=== PATIENT | female | born 1985 | race Caucasian/White ===

== ENCOUNTER → 2024-02-06 16:04 | Outpatient (BNVA) | payer BC, SELFPAY | PROVIDERS: Visit Provider Obstetrics & Gynecology | DX: Z12.4 Encounter for screening for malignant neoplasm of cervix (principal) | CPT/HCPCS: 87624 ==

== ENCOUNTER → 2024-02-26 07:54 | Outpatient (BNVA) | payer BC, MEDICAID, SELFPAY | PROVIDERS: Visit Provider Obstetrics & Gynecology | DX: N83.291 Other ovarian cyst, right side (principal) | CPT/HCPCS: 76830 ==

== ENCOUNTER 2024-06-06 05:51 | Day surgery (SDC) | payer BC, MEDICAID, SELFPAY ==
[2024-06-06] VITALS (11 sets, daily range): BP systolic 116–151; BP diastolic 76–97; PULSE 65–99; RESP 12–23; TEMP 36.2–37.1; O2SAT 94–100; BMI 34.3
--- NOTE | 2024-06-06 01:30 | W.PM.OPSFHP ---
Same Day Surgery H&P Indication for Procedure/HPI DATE OF PROCEDURE: June 06, 2024 CHIEF COMPLAINT/INDICATIONFOR SURGICAL PROCEDURE: abnormal uterine bleeding PREOP DIAGNOSIS: abnormal uterine bleeding PLANNED PROCEDURE: Operation Date: 06/06/24 07:00 Proposed Procedures p Hysteroscopy w/ Endometrial Sampling 26256, N93.9(Not Applicable) - Jim Posadas MD s Poylpectomy(Not Applicable) - Jim Posadas MD 38 y.o. h/o BTL with 6-month history of heavy and prolonged periods Medications/Allergies* Home Medications ?Medication ?Instructions ?Recorded ?Confirmed ?Type No Known Home Medications 02/06/24 06/05/24 History Allergies/Adverse Reactions Allergy/AdvReac Type Severity Reaction Status Date / Time No Known Allergies Allergy Verified 06/05/24 09:06 Pertinent History/Comorbid Conditions* Family History (Updated 02/06/24 @ 15:12 by Chanelle Meyers) Denies family history of Colon cancer Ovarian cancer Prostate cancer Diabetes Heart disease Hyperlipidemia Breast cancer Hypertension Uterine cancer Thyroid disease Stroke Social History Smoking and tobacco/nicotine status: never used tobacco/nicotine Pertinent Exam Findings alert, oriented x 3, clear to auscultation bilaterally and regular rate & rhythm Pertinent Data Pap 02-06-24 NILM, negative HPV Pelvic sono 02-26-24 normal uterus and endometrium Right ov with clear cyst 5 cm Normal left ov Recommendations Surgery/Procedure today Coding Level of Care Code Acute Code for Chg Fwd Time Spent (min) 20
[2024-06-06 06:17] LABS: OR HCG Qualitative Urine Negative (Negative)
[2024-06-06] MEDS: sodium chloride 0.9% 1,000 ML 30 ML IV (06:21)
--- NOTE | 2024-06-06 06:49 | W.PM.OPSUD ---
Surgery/Procedure H&P Update DATE OF PROCEDURE: June 06, 2024 DATE H&P PERFORMED: 06/06/24 CHANGES TO PREVIOUS DOCUMENTATION: patient wants endometrial ablation with Novasure device in addition to hysteroscopy, endometrial sampling / polypectomy PREOP DIAGNOSIS: abnormal uterine bleeding PLANNED PROCEDURE: Operation Date: 06/06/24 07:00 Proposed Procedures p Hysteroscopy w/ Endometrial Sampling 71888, N93.9(Not Applicable) - Jim Posadas MD s Poylpectomy(Not Applicable) - Jim Posadas MD
--- NOTE | 2024-06-06 07:06 | ANES.PREANE2 ---
Pre-Anesthetic Assessment Height/Weight: Height 1.63 m Weight 90.718 kg Temp Pulse Resp BP Pulse Ox O2 Del Method 97.8 F 77 17 144/83 99 Room Air 06/06/24 06:09 06/06/24 06:09 06/06/24 06:09 06/06/24 06:09 06/06/24 06:09 06/06/24 06:11 Preop Diagnosis: abnormal uterine bleeding Operation Date: 06/06/24 07:00 Proposed Procedures p Hysteroscopy w/ Endometrial Sampling 30139, N93.9(Not Applicable) - Jim Posadas MD s Poylpectomy(Not Applicable) - Jim Posadas MD Familial anesthetic complications: None Was Beta Suresh taken within 24 hours: N/A Was Clonidine taken within 24 hours: N/A Last intake: Intake Last Liquid Date 06/05/24 Last Liquid Time 21:00 Last Solid Date 06/05/24 Last Solid Time 19:30 Social No alcohol and No tobacco Exam alert, oriented x 3, clear to auscultation bilaterally and regular rate & rhythm Airway Mallampati: Class III Dentition: full Anesthetic Plan ASA status: 1 Anesthesia: General Risk of > 500 ml blood loss (7ml/kg in children): No Medications/Allergies Home Medications ?Medication ?Instructions ?Recorded ?Confirmed ?Last Taken ?Type No Known Home Medications 02/06/24 06/05/24 Unknown History Allergies Allergy/AdvReac Type Severity Reaction Status Date / Time No Known Allergies Allergy Verified 06/05/24 09:06 Current Medications Generic Name Dose Route Start Last Admin Trade Name Freq PRN Reason Stop Dose Admin Sodium Chloride 1,000 mls @ 30 mls/hr 06/06/24 06:15 06/06/24 06:21 Sodium Chloride 0.9% IV 06/07/24 06:14 30 mls/hr .Q24H PHOEBE Administration PFSH Anesthesia Family History Denies family history of Colon cancer Ovarian cancer Prostate cancer Diabetes Heart disease Hyperlipidemia Breast cancer Hypertension Uterine cancer Thyroid disease Stroke Social History Smoking and tobacco/nicotine status: never used tobacco/nicotine Female Reproductive History Date of last menstrual period: 05/22/24 Data Anesthesia Cardiac Studies: No Data to Display
[2024-06-06] MEDS: fentaNYL 50 mcg/mL INJ 2mL IVP (08:05)
--- NOTE | 2024-06-06 08:50 | ANE.PACU2 ---
Inpatient post-anesthesia follow up: Airway intact: Yes Vital signs: Temperature 98.7 F Pulse Rate 76 Respiratory Rate 17 Blood Pressure 134/82 Pulse Oximetry 97 Oxygen Delivery Me thod Room Air Oxygen Flow Rate 6 Fraction of Inspir ed Oxygen Hydration adequate: Yes Nausea and vomiting: No Pain level: 1 Mental status: Baseline
--- NOTE | 2024-06-06 09:05 | PM.OP ---
Operative Report Date of procedure: June 06, 2024 Pre-op diagnosis: menometrorrhagia Post-op diagnosis: same Post-op findings: Normal endometrial cavity No endometrial polyps or fibroids Minimal endometrial tissue Global endometrial ablation and intact uterine cavity following procedure Procedure done: hysteroscopy curettage of uterus endometrial ablation with Novasure device Implants: none Specimens removed/disposition: endometrial curettings Surgeon: Jim Posadas MD Anesthesia: MAC Estimated blood loss (mL): 5 Complications: none Findings: Normal endometrial cavity No endometrial polyps or fibroids Minimal endometrial tissue Global endometrial ablation and intact uterine cavity following procedure Brief History: 38 y.o. with menometrorrhagia Procedure: Informed consent was obtained. The patient was taken to the OR and placed on the table. General endotracheal anesthesia was induced. The patient was then placed in dorsolithotomy position. The perineum were then prepped and draped in the usual fashion. A speculum was placed in the vagina. The anterior lip of the cervix was grasped with a sharp-toothed tenaculum. The uterus was sounded to 8 cm. The cervix was serially dilated with Hegar dilators. . A hysteroscope was placed into the endometrial cavity. The endometrial cavity was seen to be normal. There were no polyps or fibroids. There was minimal endometrial tissue. The hysteroscope was then removed. Endometrial curettage was done with a sharp curette. Endometrial tissue was sent to pathology. The Novasure device was then primed and inserted into the endometrial cavity. The cervical occlusion sleeve was advanced. Cavity integrity test was done. The device was activated for 60 seconds. The Novasure device was then removed. Repeat hysteroscopy showed an intact endometrial cavity with adequate global endometrial ablation. All instruments were then removed. The sharp-toothed tenaculum was removed. There was no bleeding from the endometrial cavity or cervix. The patient was then placed supine and awakened and taken to the PACU. Postop condition: stable EBL: 5 cc Sponge and instruments counts were normal x 2 Complications: none
== END 2024-06-06 08:56 | disposition home or self-care (01) ==
PROVIDERS: Visit Provider Obstetrics & Gynecology
PROC: 0UJD8ZZ Inspection of Uterus and Cervix, Via Natural or Artificial Opening Endoscopic (ICD-10-PCS; CPT 58555; principal; 2024-06-06 07:00)
PROC: (CPT 58999; 2024-06-06 07:00)
DX: N92.0 Excessive and frequent menstruation with regular cycle (principal)
CPT/HCPCS: 58563; 81025; 88305; J1885; J2250; J2704; J3010; J7030